=== PATIENT | female | born 1975 | race Caucasian/White ===

== ENCOUNTER 2017-01-27 09:21 | Emergency (ER) | payer BC, OTHER ==
[2017-01-27 09:26] VITALS: BP 137/80; PULSE 87; TEMP 97.7; BMI 26.6
[2017-01-27] MEDS ORDERED: KETOROLAC TROMETHAMINE 60 MG/2 ML VIAL IM ONE (09:54)
[2017-01-27] MEDS ORDERED: KETOROLAC TROMETHAMINE 60 MG/2 ML VIAL ONE (09:57)
--- NOTE | 2017-01-27 09:57 | PDOC ---
History of Present Illness - General Chief Complaint: Back Pain Stated Complaint: BACK PAIN Time Seen by Provider: 01/27/17 09:41 History Source: Patient Exam Limitations: No Limitations - History of Present Illness Initial Comments: 01/27/17 09:55 41 yr female history of back pain about 10 yrs ago states the past 5 days low back pain after twisting her knee and then carrying her 5 yr old son on her back. Pt denies fall. no abd pain or fever, denies urinary or bowel dysfunction . Past History - Past Medical History Allergies/Adverse Reactions: Allergies Allergy/AdvReac Type Severity Reaction Status Date / Time No Known Allergies Allergy Verified 01/27/17 09:23 Home Medications: Ambulatory Orders Diazepam [Valium] 5 mg PO Q8H PRN #15 tablet MDD 15mg 01/27/17 Ketorolac Tromethamine [Toradol] 10 mg PO Q6H #28 tablet 01/27/17 Asthma: No Cancer: No Cardiac Disorders: No (endocarditis heart mummer) COPD: No Diabetes: No HTN: No Seizures: No Thyroid Disease: No - Surgical History Abdominal Surgery: Yes (bilateral hernia reapir) - Suicide/Smoking/Psychosocial Hx Smoking History: Never smoked Have you smoked in the past 12 months: No Information on smoking cessation initiated: No Hx Alcohol Use: No Drug/Substance Use Hx: No Substance Use Type: None Hx Substance Use Treatment: No *Physical Exam - Vital Signs Last Vital Signs Temp Pulse Resp BP Pulse Ox 97.7 F 87 20 137/80 97 01/27/17 09:23 01/27/17 09:23 01/27/17 09:23 01/27/17 09:23 01/27/17 09:23 - Physical Exam General Appearance: Yes: Nourished, Appropriately Dressed HEENT: positive: EOMI, LISSETH Neck: positive: Supple. negative: Tender Respiratory/Chest: positive: Lungs Clear, Normal Breath Sounds Cardiovascular: positive: Regular Rhythm, Regular Rate Gastrointestinal/Abdominal: positive: Normal Bowel Sounds, Soft. negative: Tender Rectal Exam: positive: deferred Musculoskeletal: positive: Normal Inspection, Decreased Range of Motion, Other ( parapsinal lumbar soft tissue pain no redness, no rashes). negative: Vertebral Tenderness Extremity: positive: Normal Capillary Refill, Normal Inspection, Normal Range of Motion Integumentary: positive: Normal Color, Dry, Warm Neurologic: positive: Fully Oriented, Alert, Normal Mood/Affect, Normal Response , Motor Strength 5/5, Finger to Nose (intact neg SLR bilaterally ). negative: Respond to painful stimul, Numbness, Sensory Deficit Medical Decision Making - Medical Decision Making 01/27/17 09:56 cc: low back pain for 5 days getting worse, not relieved with advil pt denies fever LMP 3 weeks ago denies pt is ambulatory with assistance 01/27/17 11:15 pt states pain has improved, has more ease at ambulating. pt was seen in the fast track area by her PMD and will follow with him tomorrow. pt dc with her family ambulatory all dc inst discussed and all questions asked and answered. *DC/Admit/Observation/Transfer Diagnosis at time of Disposition: Low back pain Qualifiers: Chronicity: acute Back pain laterality: bilateral Sciatica presence: without sciatica Qualified Code(s): M54.5 - Low back pain - Discharge Dispostion Disposition: HOME Condition at time of disposition: Good - Prescriptions Prescriptions: Diazepam [Valium] 5 mg PO Q8H PRN #15 tablet MDD 15mg PRN Reason: Muscle Spasms Ketorolac Tromethamine [Toradol] 10 mg PO Q6H #28 tablet - Referrals Referrals: Linda Finney MD [Primary Care Provider] - Mazin Ervin MD [Staff Physician] - - Patient Instructions Additional Instructions: apply ice every 2hrs for 20 minutes, then apply heat you can get Icy Hot back patches to the lower back (over the counter) take valium for muscle relaxant take toradol as prescribed for pain follow with your doctor tomorrow or with the orthopedist Dr. 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
== END 2017-01-27 11:15 | disposition home or self-care (01) ==
LOC: JERFT 09:21
PROC: 3E0233Z Introduction of Anti-inflammatory into Muscle, Percutaneous Approach (ICD-10-PCS; principal; 2017-01-27)
DX: M54.5 Low back pain (principal)
CPT/HCPCS: 72100-TC; 99281-25